=== PATIENT | female | born 1950 | race Two or more races ===

== ENCOUNTER 2023-02-20 07:35 | Day surgery (SDC) | payer OTHER | END 2023-02-20 13:15 | disposition home or self-care (01) | LOC: AMB-ENDOS 07:35 | PROVIDERS: ATTEND Surgery | DX: D37.4 Neoplasm of uncertain behavior of colon (principal); K57.30 Diverticulosis of large intestine without perforation or abscess without bleeding; R93.5 Abnormal findings on diagnostic imaging of other abdominal regions, including retroperitoneum; Z20.822 Contact with and (suspected) exposure to COVID-19 ==